=== PATIENT | female | born 1980 | race Caucasian/White ===

== ENCOUNTER 2019-08-01 13:12 | Emergency (ER) | payer SELFPAY ==
[2019-08-01 13:52] VITALS: BP 111/69
--- NOTE | 2019-08-01 14:19 | ER Document Report ---
HPI - HPI Time Seen by Provider: 08/01/19 14:06 Pain Level: 2 Context: CHIEF COMPLAINT: Sinus congestion for 1 week HPI: 39-year-old female presenting to the emergency department complaining of sinus congestion and pain for 1 week. Reports a foul nasal discharge. Reports pain over the forehead and facial region. No fever. Has used Afrin at home without resolution of symptoms. Did not see a PCP for follow-up for evaluation of symptoms. Slight dry cough. ROS: See HPI - all other systems were reviewed and are otherwise negative Constitutional: no fever Eyes: no drainage, no blurred vision ENT: + runny nose, no sore throat, positive sinus pain Cardiovascular: no chest pain Resp: no SOB, + cough GI: no vomiting, no diarrhea, no abdominal pain : no dysuria Integumentary: no rash Allergy: no hives Musculoskeletal: no extremity pain or swelling Neurological: no numbness/tingling, no weakness MEDICATIONS: I agree with the patient medications as charted by the RN. ALLERGIES: I agree with the allergies as charted by the RN. PAST MEDICAL HISTORY/PAST SURGICAL HISTORY: Reviewed and agree as charted by RN. SOCIAL HISTORY: Reviewed and agree as charted by RN. FAMILY HISTORY: No significant familial comorbid conditions directly related to patient complaint EXAM: Reviewed vital signs as charted by RN. CONSTITUTIONAL: Alert and oriented and responds appropriately to questions. Well-appearing; well-nourished, mild distress secondary to discomfort HEAD: Normocephalic; atraumatic EYES: PERRL; Conjunctivae clear, sclerae non-icteric ENT: normal nose; positive clear rhinorrhea; moist mucous membranes; pharynx without lesions noted, no uvula edema or deviation, no tonsillar hypertrophy, phonation normal. Mild tenderness over the frontal and maxillary sinuses bilaterally without visible swelling or redness NECK: Supple without meningismus; non-tender; no cervical lymphadenopathy, no masses CARD: RRR; no murmurs, no clicks, no rubs, no gallops; symmetric distal pulses RESP: Normal chest excursion without splinting or tachypnea; breath sounds clear and equal bilaterally; no wheezes, no rhonchi, no rales, pulse oximetry 97% on room air not hypoxic. Dry cough is noted ABD/GI: Normal bowel sounds; non-distended; soft, non-tender, no rebound, no guarding; no palpable organomegaly or masses. BACK: The back appears normal and is non-tender to palpation, there is no CVA tenderness EXT: Normal ROM in all joints; non-tender to palpation; no cyanosis, no effusions, no edema SKIN: Normal color for age and race; warm; dry; good turgor; no acute lesions noted NEURO: Moves all extremities equally; Motor and sensory function intact PSYCH: The patient's mood and manner are appropriate. Grooming and personal hygiene are appropriate. MDM: 39-year-old female with 7 to 8 days of sinus pain and discomfort. Given length of time of symptoms will treat as a sinusitis. Nasal steroids, antibiotics follow-up PCP - REPRODUCTIVE Reproductive: DENIES: : Past Medical History - Social History Smoking Status: Unknown if Ever Smoked Frequency of alcohol use: None Drug Abuse: None Family History: Reviewed & Not Pertinent Patient has suicidal ideation: No Patient has homicidal ideation: No Course - Vital Signs Vital signs: Temp Pulse Resp BP Pulse Ox 98.1 F 74 16 111/69 98 08/01/19 13:51 08/01/19 13:51 08/01/19 13:51 08/01/19 13:51 08/01/19 13:51 Discharge - Discharge Clinical Impression: Sinusitis, acute Qualifiers: Sinusitis location: frontal Recurrence: non-recurrent Qualified Code(s): J01.10 - Acute frontal sinusitis, unspecified Condition: Stable Disposition: HOME, SELF-CARE Instructions: Sinusitis (OM) Additional Instructions: Medications as prescribed. Follow-up with primary care provider for further evaluation and treatment call for appointment. If you are paying for the medications [id number] use the [employer] Rx card to help with cost Prescriptions: Amox Tr/Potassium Clavulanate [Augmentin 875-125 Tablet] 1 tab PO BID 10 Days #20 tablet Fluticasone Propionate [Flonase Nasal [place] 50 Mcg/[place] 16 gm] 1 spray NASL Q12 #1 inhaler Referrals: HELGA ELAM MD [ACTIVE STAFF] - Follow up as needed
== END 2019-08-01 14:29 | disposition home or self-care (01) ==
LOC: ER 13:12
DX: J01.10 Acute frontal sinusitis, unspecified (principal); R09.81 Nasal congestion; J34.89 Other specified disorders of nose and nasal sinuses; R51 Headache; R05 Cough
CPT/HCPCS: 99283